=== PATIENT | female | born 2000 | race African-American/Black ===

== ENCOUNTER 2023-07-27 04:03 | Emergency (ER) | payer MEDICAID, OTHER ==
[~2023-07-27] VITALS: Ht 154.9 cm; Wt 54.9 kg
[2023-07-27 07:53] VITALS: BP 103/57; PULSE 76; RESP 18; O2SAT 97
== END 2023-07-27 07:54 | disposition home or self-care (01) ==
LOC: ER 04:03
DX: S09.8XXA Other specified injuries of head, initial encounter (principal); M54.2 Cervicalgia; M25.561 Pain in right knee; Z32.02 Encounter for pregnancy test, result negative; V43.52XA Car driver injured in collision with other type car in traffic accident, initial encounter; Y93.89 Activity, other specified; Y92.89 Other specified places as the place of occurrence of the external cause; Y99.8 Other external cause status
CPT/HCPCS: 70450; 71250; 72125; 73130; 73562; 81025

== ENCOUNTER 2024-06-27 01:27 | Observation (INO) | payer MEDICAID ==
[~2024-06-27] VITALS: Ht 154.9 cm; Wt 62.6 kg
[2024-06-27] MEDS: TERBUTALINE SULFATE 1 MG/ML 1ML VIAL SC ONE (02:27)
[2024-06-27 03:07] LABS: Urine Bacteria FEW /hpf (None Seen); Urine Blood Negative /uL (Negative); Urine Clarity Clear (Clear); Urine Protein, UAD Negative (Negative); Urine Specific Gravity 1.006 (1.001-1.035); Urine Urobilinogen Normal (Negative); Urine WBC 13 /hpf (0 - 5); Urine pH 6.5 (5.0-9.0)
[2024-06-27 03:13] LABS: Urine Color STRAW (Yellow)
[2024-06-27 03:48] LABS: Amphetamine Screen, Urine Neg (NEGATIVE); Barbiturate Scree,Urine Neg (NEGATIVE); Benzodiazephine Screen, Urine Neg (NEGATIVE); Cannabinoid Screen, Urine Neg (NEGATIVE); Cocaine Screen, Urine Neg (NEGATIVE); Opiate Scree,Urine Neg (NEGATIVE); Phencyclidine Screen, Urine Neg (NEGATIVE)
--- NOTE | 2024-06-27 11:11 | DVHDS2 ---
Physician Discharge Progress N Final Diagnosis: ucs Operations or Procedures: Operations or Procedures nst,sono Condition on Discharge: Good Disposition: Home Discharge Instructions: Diet: Regular Activity: No Restrictions, As Tolerated Medications: na Follow Up Care: Specialist: 2d Discharge Statement: "Patient was advised to return to the ER or call 911 if any headaches, dizziness, shortness of breath, chest pain, abdominal pain, bleeding, fevers, or worsening of medical condition. Patient was counseled about treatment plan, medications, possible side effects, patientverbalized understanding. All questions were answered to the best of my ability. This discharge took greater then 30 minutes in planning, reviewing documentation, counseling the patient, and discussing with other team members." YOGESH DUGAN DO Jun 27, 2024 11:11
== END 2024-06-27 04:00 | disposition home or self-care (01) ==
LOC: LDRP 01:27
PROVIDERS: ADMIT Obstetrics & Gynecology; ATTEND Obstetrics & Gynecology
DX: O62.9 Abnormality of forces of labor, unspecified (principal); Z3A.37 37 weeks gestation of pregnancy; Z79.899 Other long term (current) drug therapy
CPT/HCPCS: 59025; 80307; 81001; 81002; 94760; 96372; G0378; J3105; 96375